=== PATIENT | female | born 1965 | race Caucasian/White ===

== ENCOUNTER 2016-10-24 15:22 | Emergency (ER) | payer OTHER ==
[~2016-10-24] VITALS: Ht 167.6 cm; Wt 65.9 kg
[2016-10-24 15:44] VITALS: BP 147/83; PULSE 84; RESP 16; TEMP 98.1; O2SAT 100
[2016-10-24] MEDS ORDERED: SODIUM CHLOR 0.9% 1000 ML INJ 1,000 ML IV SCH (16:13)
[2016-10-24] MEDS ORDERED: SODIUM CHLORIDE 0.9% FLUSH 5 ML FLUSH IVF PRN (16:15)
[2016-10-24 16:16] LABS: BLOOD, URINE NEG (NEG); GLUCOSE,URINE NEG (NEG); KETONE, URINE NEG (NEG); NITRITE,URINE NEG (NEG); PH, URINE 6.5 (5.0-8.5)
--- NOTE | 2016-10-24 16:20 | PD ---
HPI Chief Complaint: Abdominal Pain Time Seen by Provider: 16:16 Travel History International Travel<30 days: No Contact w/Intl Traveler<30days: No Traveled to known affect area: No History of Present Illness HPI Patient is a 51-year-old female presenting to emergency for evaluation of right upper quadrant abdominal pain. She also reports pain in her right mid back. She denies any injury or trauma that caused the back pain. Her pain in the back has been ongoing for several weeks. The abdominal pain has gotten worse over the last few days, she states that she couldn't drive anymore and came right to the emergency department. Patient has had a cholecystectomy and an appendectomy. She denies any vomiting, diarrhea. She denies any fevers, chills , shortness of breath or chest pain. She rates her pain a 5 out of 10 and describes it as aching. Patient reports frequent alcohol use. She reports being told that she had elevated liver enzymes. PFS Past Medical History Anxiety: Yes Depression: Yes Medical other: Yes (HYDROCEPHALUS, BRAIN TUMOR) ?: Not LMP: 10/12/16 Past Surgical History Appendectomy: Yes Social History Alcohol Use: Yes Tobacco Use: No Substance Use: No Allergies-Medications (Allergen,Severity, Reaction): Coded Allergies: No Known Allergies (Unverified , 10/24/16) Reported Meds & Prescriptions Reported Meds & Active Scripts Active No Active Prescriptions or Reported Medications Review of Systems Except as stated in HPI: all other systems reviewed are Neg General / Constitutional: No: Fever, Chills HENT: No: Headaches Cardiovascular: No: Chest Pain or Discomfort Respiratory: No: Shortness of Breath Gastrointestinal: Positive: Abdominal Pain, No: Nausea, Vomiting, Diarrhea Genitourinary: No: Dysuria Musculoskeletal: Positive: Myalgias Physical Exam Narrative GENERAL: Well-developed, well-nourished, alert female. Resting comfortably in no acute distress. SKIN: Warm and dry. HEAD: Atraumatic. Normocephalic. EYES: Pupils equal and round. No scleral icterus. No injection or drainage. ENT: No nasal bleeding or discharge. Mucous membranes pink and moist. NECK: Trachea midline. No JVD. CARDIOVASCULAR: Regular rate and rhythm. No murmur appreciated. RESPIRATORY: No accessory muscle use. Clear to auscultation. Breath sounds equal bilaterally. GASTROINTESTINAL: Abdomen soft, tender to palpation in right upper quadrant, no rebound, positive guarding. Positive bowel sounds. MUSCULOSKELETAL: No obvious deformities. No clubbing. No cyanosis. No edema. Tenderness to palpation in right or spinal musculature and thoracic region. Full range of motion in all 4 extremities. 5/5 muscle strength in all 4 extremities. NEUROLOGICAL: Awake and alert. No obvious cranial nerve deficits. Motor grossly within normal limits. Normal speech. PSYCHIATRIC: Appropriate mood and affect; insight and judgment normal. Data Data Last Documented VS Vital Signs Date Time Temp Pulse Resp B/P Pulse Ox O2 Delivery O2 Flow Rate FiO2 10/24/16 15:44 98.1 84 16 147/83 100 Orders Urinalysis - C+S If Indicated (10/24/16 15:39) Ed Urine Pregnancytest Poc (10/24/16 15:39) Complete Blood Count With Diff (10/24/16 16:13) Comprehensive Metabolic Panel (10/24/16 16:13) Lipase (10/24/16 16:13) Lactic Acid (10/24/16 16:13) Ct Abd/Pel W Iv Contrast(Rout) (10/24/16 16:13) Iv Access Insert/Monitor (10/24/16 16:13) Sodium Chlor 0.9% 1000 Ml Inj (Ns 1000 M (10/24/16 16:13) Sodium Chloride 0.9% Flush (Ns Flush) (10/24/16 16:15) Iohexol 350 Inj (Omnipaque 350 Inj) (10/24/16 17:57) Labs Laboratory Tests Test 10/24/16 10/24/16 16:05 16:25 Urine Collection Type CLEAN CATCH Urine Color YELLOW Urine Turbidity CLEAR Urine pH 6.5 Urine Specific [place] 1.003 Urine Protein NEG mg/dL Urine Glucose (UA) NEG mg/dL Urine Ketones NEG mg/dL Urine Occult Blood NEG Urine Nitrite NEG Urine Bilirubin NEG Urine Leukocyte Esterase SMALL Urine WBC 15-19 /hpf Urine Squamous Epithelial 6-8 /hpf Cells Urine Bacteria OCC /hpf Microscopic Urinalysis Comment CULT NOT INDICATED Urine Collection Time 16:05 White Blood Count 6.2 TH/MM3 Red Blood Count 4.30 MIL/MM3 Hemoglobin 13.2 GM/DL Hematocrit 40.0 % Mean Corpuscular Volume 92.8 FL Mean Corpuscular Hemoglobin 30.6 PG Mean Corpuscular Hemoglobin 33.0 % Concent Red Cell Distribution Width 12.7 % Platelet Count 219 TH/MM3 Mean Platelet Volume 9.4 FL Neutrophils (%) (Auto) 64.4 % Lymphocytes (%) (Auto) 20.9 % Monocytes (%) (Auto) 9.7 % Eosinophils (%) (Auto) 4.2 % Basophils (%) (Auto) 0.8 % Neutrophils # (Auto) 4.0 TH/MM3 Lymphocytes # (Auto) 1.3 TH/MM3 Monocytes # (Auto) 0.6 TH/MM3 Eosinophils # (Auto) 0.3 TH/MM3 Basophils # (Auto) 0.0 TH/MM3 CBC Comment DIFF FINAL Differential Comment Sodium Level 142 MEQ/L Potassium Level 3.7 MEQ/L Chloride Level 108 MEQ/L Carbon Dioxide Level 28.3 MEQ/L Anion Gap 6 MEQ/L Blood Urea Nitrogen 13 MG/DL Creatinine 0.79 MG/DL Estimat Glomerular Filtration 77 ML/MIN Rate Random Glucose 94 MG/DL Lactic Acid Level 0.9 mmol/L Calcium Level 8.5 MG/DL Total Bilirubin 0.4 MG/DL Aspartate Amino Transf 18 U/L (AST/SGOT) Alanine Aminotransferase 23 U/L (ALT/SGPT) Alkaline Phosphatase 51 U/L Total Protein 7.1 GM/DL Albumin 3.7 GM/DL Lipase 161 U/L [facility] Medical Decision Making Medical Screen Exam Complete: Yes Emergency Medical Condition: Yes Interpretation(s) Last Impressions Abdomen/Pelvis CT 10/24/16 1613 Signed Impressions: Service Date/Time: Monday, October 24, 2016 17:41 - CONCLUSION: 1. Patient is status post cholecystectomy and appears to be status post appendectomy as well. 2. Otherwise, no acute intraperitoneal or pelvic process to explain current clinical symptoms. Jareth Dumont MD Laboratory Tests Test 10/24/16 10/24/16 16:05 16:25 Urine Collection Type CLEAN CATCH Urine Color YELLOW Urine Turbidity CLEAR Urine pH 6.5 Urine Specific [place] 1.003 Urine Protein NEG mg/dL Urine Glucose (UA) NEG mg/dL Urine Ketones NEG mg/dL Urine Occult Blood NEG Urine Nitrite NEG Urine Bilirubin NEG Urine Leukocyte Esterase SMALL Urine WBC 15-19 /hpf Urine Squamous Epithelial 6-8 /hpf Cells Urine Bacteria OCC /hpf Microscopic Urinalysis Comment CULT NOT INDICATED Urine Collection Time 16:05 White Blood Count 6.2 TH/MM3 Red Blood Count 4.30 MIL/MM3 Hemoglobin 13.2 GM/DL Hematocrit 40.0 % Mean Corpuscular Volume 92.8 FL Mean Corpuscular Hemoglobin 30.6 PG Mean Corpuscular Hemoglobin 33.0 % Concent Red Cell Distribution Width 12.7 % Platelet Count 219 TH/MM3 Mean Platelet Volume 9.4 FL Neutrophils (%) (Auto) 64.4 % Lymphocytes (%) (Auto) 20.9 % Monocytes (%) (Auto) 9.7 % Eosinophils (%) (Auto) 4.2 % Basophils (%) (Auto) 0.8 % Neutrophils # (Auto) 4.0 TH/MM3 Lymphocytes # (Auto) 1.3 TH/MM3 Monocytes # (Auto) 0.6 TH/MM3 Eosinophils # (Auto) 0.3 TH/MM3 Basophils # (Auto) 0.0 TH/MM3 CBC Comment DIFF FINAL Differential Comment Sodium Level 142 MEQ/L Potassium Level 3.7 MEQ/L Chloride Level 108 MEQ/L Carbon Dioxide Level 28.3 MEQ/L Anion Gap 6 MEQ/L Blood Urea Nitrogen 13 MG/DL Creatinine 0.79 MG/DL Estimat Glomerular Filtration 77 ML/MIN Rate Random Glucose 94 MG/DL Lactic Acid Level 0.9 mmol/L Calcium Level 8.5 MG/DL Total Bilirubin 0.4 MG/DL Aspartate Amino Transf 18 U/L (AST/SGOT) Alanine Aminotransferase 23 U/L (ALT/SGPT) Alkaline Phosphatase 51 U/L Total Protein 7.1 GM/DL Albumin 3.7 GM/DL Lipase 161 U/L Vital Signs Date Time Temp Pulse Resp B/P Pulse Ox O2 Delivery O2 Flow Rate FiO2 10/24/16 15:44 98.1 84 16 147/83 100 Differential Diagnosis Muscle strain versus spasm versus discogenic pain versus transaminitis versus gastritis versus obstruction versus other Narrative Course Patient's 51-year-old female presenting to emergency for evaluation of right upper quadrant abdominal pain and right upper back pain. Labs and imaging ordered and pending. Back pain is been ongoing for several weeks and appears more consistent with a muscle strain, muscle spasms. Patient is tender on exam to the left upper quadrant. CT scan, labs ordered and pending. CT scan abdomen and pelvis is negative for acute abnormality. Labs have been reviewed and are unremarkable. Patient be provided with a prescription for ibuprofen as well as Flexeril. She is encouraged follow-up with her primary doctor. She is encouraged return to emergency department for any new or worsening symptoms. Patient was reassured at this time there is no acute findings. Patient is stable for discharge. Diagnosis Primary Impression: Abdominal pain Qualified Code: R10.31 - Right lower quadrant abdominal pain Additional Impressions: Back pain Qualified Code: M54.6 - Chronic right-sided thoracic back pain Muscle spasm Referrals: Primary Care Physician Patient Instructions: Abdominal Pain (ED), General Instructions, Muscle Spasm ( ED), Muscle Strain (ED) Additional Instructions: Apply warm moist heat to affected area, continue range of motion exercises, avoid exacerbating activities Take medications as directed, consistently for the next 24-48 hours and then as needed Follow-up with your primary doctor Return to emergency department for any new or worsening symptoms Med/Other Pt SpecificInfo: Prescription(s) given Scripts Cyclobenzaprine (Flexeril)10 Mg Tab10 Mg PO TID PRN (MUSCLE SPASM) 7 Days Ref 0 Prov:Carli Jenkins 10/24/16 Ibuprofen 800 Mg Mop536 Mg PO Q6HR PRN (PAIN) #40 TAB Ref 0 Prov:Carli Jenkins 10/24/16 Disposition: 01 DISCHARGE HOME Condition: Stable Carli Jenkins Oct 24, 2016 16:20
[2016-10-24 16:28] LABS: METHOD OF COLLECTION CLEAN CATCH; URINE COLOR YELLOW (YELLW/STRAW)
[2016-10-24 16:29] LABS: BACTERIA, URINE OCC /hpf; WBC, URINE 15-19 /hpf (0-5)
[2016-10-24 16:30] LABS: COMMENT (UR) CULT NOT INDICATED; CULTURE IF INDICATED CULT NOT INDICATED
[2016-10-24 16:50] LABS: CHLORIDE 108 MEQ/L (98-107); POTASSIUM 3.7 MEQ/L (3.5-5.1); SODIUM (NA) 142 MEQ/L (136-145)
[2016-10-24 16:54] LABS: ANION GAP 6 MEQ/L (5-15); BICARBONATE 28.3 MEQ/L (21.0-32.0); BLOOD UREA NITROGEN 13 MG/DL (7-18)
[2016-10-24 16:57] LABS: ALT (GPT) 23 U/L (10-53); AST (GOT) 18 U/L (15-37); GLOMERULAR FILTRATION RATE 77 ML/MIN (>89)
[2016-10-24 16:58] LABS: TOTAL BILIRUBIN ADULT 0.4 MG/DL (0.2-1.0)
[2016-10-24 16:59] LABS: ALKALINE PHOSPHATASE 51 U/L (45-117)
[2016-10-24 17:11] LABS: BASOPHIL % 0.8 % (0.0-2.0); EOSINOPHIL # 0.3 TH/MM3 (0-0.4); EOSINOPHIL % 4.2 % (0.0-4.0); HEMO FLAGS DIFF FINAL; LYMPH % 20.9 % (9.0-44.0); LYMPHOCYTE # 1.3 TH/MM3 (1.0-4.8); MEAN CELL VOLUME 92.8 FL (80.0-100.0); MEAN CORPUSCULAR HEMOGLOBIN 30.6 PG (27.0-34.0); MONO % 9.7 % (0.0-8.0); NEUT % 64.4 % (16.0-70.0); PLATELET COUNT 219 TH/MM3 (150-450); RED CELL DISTRIBUTION WIDTH 12.7 % (11.6-17.2); WHITE BLOOD COUNT 6.2 TH/MM3 (4.0-11.0)
[2016-10-24] MEDS ORDERED: IOHEXOL 350 MG/ML 10 ML VIAL (for RAD DIAG) IV ONE (17:57)
--- NOTE | 2016-10-24 18:08 | RADHPO ---
EXAM DATE/TIME: 10/24/2016 17:41 [facility] COMPARISON: No previous studies available for comparison. INDICATIONS : Right abdominal pain radiating into lower back. IV CONTRAST: 75 cc Omnipaque 350 (iohexol) IV ORAL CONTRAST: No oral contrast ingested. RADIATION DOSE: 8.12 CTDIvol (mGy) MEDICAL HISTORY : None SURGICAL HISTORY : Appendectomy. Cholecystectomy.Fusion, lumbar. ENCOUNTER: Initial ACUITY: 1 day PAIN SCALE: 6/10 LOCATION: Right abdomen and lower back. TECHNIQUE: Volumetric scanning of the abdomen and pelvis was performed. Using automated exposure control and ad justment of the mA and/or kV according to patient size, radiation dose was kept as low as reasonably achievable to obtain optimal diagnostic quality images. FINDINGS: LOWER LUNGS: The visualized lower lungs are clear. LIVER: Homogeneous density without lesion. There is no dilation of the biliary tree. Patient is status post cholecystectomy with surgical clips in the gallbladder fossa. SPLEEN: Normal size without lesion. PANCREAS: Within normal limits. KIDNEYS: Normal in size and shape. There is no mass, stone or hydronephrosis. ADRENAL GLANDS: Within normal limits. VASCULAR: There is no aortic aneurysm. BOWEL/MESENTERY: The stomach, small bowel, and colon demonstrate no acute abnormality. There is no free intraperitone al air or fluid. Surgical clip at the base of the cecum suggests prior appendectomy. The appendix is not visualized. ABDOMINAL WALL: Within normal limits. RETROPERITONEUM: There is no lymphadenopathy. BLADDER: No wall thickening or mass. REPRODUCTIVE: Within normal limits. INGUINAL: There is no lymphadenopathy or hernia. MUSCULOSKELETAL: Posterior fixation of the lumbosacral junction. Otherwise intact. CONCLUSION: 1. Patient is status post cholecystectomy and appears to be status post appendectomy as well. 2. Otherwise, no acute intraperitoneal or pelvic process to explain current clinical symptoms. Jareth Dumont MD on October 24, 2016 at 18:00 Board Certified Radiologist. This report was verified electronically.
[2016-10-24] MEDS ORDERED: IBUP800T23 PO (18:21)
[2016-10-24] MEDS ORDERED: CYCL1TAB29 PO (18:21)
[2016-10-24 18:31] VITALS: BP 146/90; PULSE 80; RESP 18; O2SAT 98
== END 2016-10-24 18:37 | disposition home or self-care (01) ==
LOC: PHED 15:22 → PHEFT 18:37
DX: R10.31 Right lower quadrant pain (principal); M54.6 Pain in thoracic spine; M62.838 Other muscle spasm
CPT/HCPCS: 74177; 80053; 81001; 83605; 83690; 85025; 96360; 99284; J7030; Q9967